=== PATIENT | female | born 1935 | race Caucasian/White ===

== ENCOUNTER 2019-05-29 14:47 | Day surgery (SDC) | payer MEDICARE, BC ==
[2019-05-29] MEDS ORDERED: Xylocaine 1% Vial 30 ML PF IJ ONE (14:48)
[2019-05-29] MEDS ORDERED: Sodium Chloride 0.9(Preservative Free) 10 ML IJ ONE (14:48)
[2019-05-29] MEDS ORDERED: Decadron 4 MG INJ IV ONE (14:48)
[2019-05-29] MEDS ORDERED: Lactated Ringers 1,000 ML IV ONE (16:36)
--- NOTE | 2019-05-29 16:55 | XRAY ---
Indication: C7-T1 JEAN MARIE. Intraoperative fluoroscopy was provided for 24 seconds. 2 digital spot images submitted for interpretation demonstrates midline needle tip just posterior to the C7-T1 interspace. Small amount of contrast injected for needle tip placement. Correlate with intraoperative findings/report.
--- NOTE | 2019-05-29 17:03 | XRAY ---
24 seconds fluoroscopy time in surgery for C7-T1 JEAN MARIE.
== END 2019-05-29 16:35 | disposition home or self-care (01) ==
LOC: SDC-PAIN 14:47
PROVIDERS: ATTEND Psychiatry & Neurology Pain Medicine
DX: M54.16 Radiculopathy, lumbar region (principal); N19 Unspecified kidney failure; M10.9 Gout, unspecified
CPT/HCPCS: 62321; 72040; 77003; J1100; J2001; Q9966